=== PATIENT | male | born 1935 | race Two or more races ===

== ENCOUNTER 2021-12-20 18:55 | Observation (INO) | payer BC, MEDICARE ==
[~2021-12-20] VITALS: Ht 177.8 cm; Wt 72.7 kg
[2021-12-20 19:23] LABS: EOSINOPHILS # (AUTO) 0.3 X10'3 (0-0.9); HEMATOCRIT 40.8 % (42.0-52.0); LYMPHOCYTES # (AUTO) 0.8 X10'3 (1.1-4.8); NEUTROPHILS # (AUTO) 7.3 X10'3 (1.8-7.7); WHITE BLOOD COUNT 9.6 X10'3 (4.5-11.0)
[2021-12-20 19:25] LABS: BASOPHILS % (AUTO) 0.4 % (0-1); EOSINOPHILS % (AUTO) 2.9 % (0-6); HEMOGLOBIN 13.7 g/dl (14.0-17.9); LYMPHOCYTES % (AUTO) 8.6 % (21-51); MEAN CORPUSCULAR HEMOGLOBIN 30.4 PG (27.0-31.0); MEAN CORPUSCULAR HGB CONC 33.5 g/dL (33.0-36.5); MEAN CORPUSCULAR VOLUME 90.7 FL (78-98); MEAN PLATELET VOLUME 8.8 FL (7.4-10.4); MONOCYTES # (AUTO) 1.2 X10'3 (0-0.9); MONOCYTES % (AUTO) 12.3 % (2-12); NEUTROPHILS % (AUTO) 75.8 % (42-75); PLATELET COUNT 144 X10'3 (140-440); RED CELL DISTRIBUTION WIDTH 13.8 % (11.5-14.5)
[2021-12-20 19:38] LABS: ALANINE AMINOTRANSFERASE 23 U/L (12-78); ALBUMIN 3.1 G/DL (3.4-5.0); ALBUMIN/GLOBULIN RATIO 0.7 (1.1-1.5); ALKALINE PHOSPHATASE 89 IU/L (46-116); ANION GAP 7 (8-16); ASPARTATE AMINO TRANSFERASE 16 U/L (10-37); BILIRUBIN,TOTAL 0.5 MG/DL (0.1-1.0); BLOOD UREA NITROGEN 20 MG/DL (7-18); BUN/CREATININE RATIO 10.4 (5.4-32.0); CALCIUM 9.6 MG/DL (8.5-10.1); CHLORIDE 104 MMOL/L (99-107); CREATININE 1.93 MG/DL (0.60-1.10); GLUCOSE 132 MG/DL (70-104); SODIUM 140 MMOL/L (135-145); TOTAL CARBON DIOXIDE 29.2 MMOL/L (24-32); TOTAL PROTEIN 7.5 G/DL (6.4-8.2); eGFR 33 ML/MIN
[2021-12-20] MEDS: dextrose 5%-1/2 normal saline 1,000 ML IV SCH (20:41)
--- NOTE | 2021-12-20 21:24 | NUR ---
CALL [facility] AT [phone] {DAUGHTER }FOR ANY QUES OR CONCERN OR IF PT NEEDS TO BE REDIRECTABLE.
[2021-12-20] MEDS ORDERED: acetaminophen 325mg tablet PO PRN (23:00)
[2021-12-20] MEDS ORDERED: magnesium 2GM in 50ml NS 50 ML IV PRN (23:00)
[2021-12-20] MEDS: normal saline 1000ml 1,000 ML IV SCH (23:00)
[2021-12-20] MEDS ORDERED: ondansetron/PF 4mg/2ml inj IV PRN (23:00)
[2021-12-20] MEDS ORDERED: magnesium 4gm in 100ml NS 100 ML IV PRN (23:00)
[2021-12-20] MEDS ORDERED: potassium CL 10mEq/100ml bag 100 ML IV PRN (23:00)
[2021-12-20] MEDS ORDERED: mag hydrox/Alum hydrox/simeth 30ml oral suspension PO PRN (23:00)
[2021-12-20] MEDS ORDERED: POTASSIUM BICARB 20meq eff tab 20 MEQ TABLET.EFF PO PRN ×2 (23:00)
--- NOTE | 2021-12-21 00:05 | NUR ---
Patient placed on hospital bed.
[2021-12-21 00:41] LABS: CLARITY,URINE CLEAR (Clear); COLOR,URINE YELLOW (Yellow); GLUCOSE, URINE NEGATIVE (Neg); KETONES,URINE NEGATIVE (Neg); LEUKOCYTE ESTERASE ,URINE NEGATIVE (Neg); NITRITES, URINE NEGATIVE (Neg); OCCULT BLOOD,URINE NEGATIVE (Neg); PROTEIN,URINE 30 mg/dl (Neg); UROBILINOGEN,URINE 0.2 E.U/dL (0.2-1.0)
[2021-12-21 00:43] LABS: UA COLLECTION TYPE URINAL
[2021-12-21] MEDS: dextrose 5%-1/2 normal saline 1,000 ML IV SCH ×3 (00:50→09:51)
[2021-12-21 00:52] LABS: BACTERIA,URINE FEW /HPF (Neg); SQUAMOUS EPITHELIAL CELL,UR FEW /LPF (FEW)
[2021-12-21 00:53] LABS: TRANSITIONAL EPI CELLS,URINE FEW /HPF
--- NOTE | 2021-12-21 01:07 | NUR ---
> PT REFUSING TYLENOL 650MG FOR HIS LEG PAIN, REQUESTING FOR A STRONGER PAIN MED
--- NOTE | 2021-12-21 02:00 | NUR ---
Patient becoming increasingly confused, unable to redirect, patient not staying in bed, very frustrated with staff. Has gotten out of bed multiple times and refuses to "be told what to do".
[2021-12-21] MEDS ORDERED: ziprasidone IM 20mg inj **IM only IM ONE (02:15)
--- NOTE | 2021-12-21 03:37 | NUR ---
Patient resting comfortably, no signs of distress, no needs at this time.
--- NOTE | 2021-12-21 04:27 | NUR ---
Unable to complete patient med rec d/t patient mentation and increasing confusion. Patient did not come with med list, states his has it. Unable to access ext med because [facility].
[2021-12-21 07:28] LABS: ALANINE AMINOTRANSFERASE 21 U/L (12-78); ALBUMIN 2.7 G/DL (3.4-5.0); ALBUMIN/GLOBULIN RATIO 0.7 (1.1-1.5); ALKALINE PHOSPHATASE 83 IU/L (46-116); ANION GAP 9 (8-16); ASPARTATE AMINO TRANSFERASE 21 U/L (10-37); BILIRUBIN,TOTAL 0.5 MG/DL (0.1-1.0); BLOOD UREA NITROGEN 18 MG/DL (7-18); BUN/CREATININE RATIO 11.8 (5.4-32.0); CALCIUM 9.1 MG/DL (8.5-10.1); CHLORIDE 107 MMOL/L (99-107); CREATININE 1.53 MG/DL (0.60-1.10); GLUCOSE 98 MG/DL (70-104); MAGNESIUM 2.1 MG/DL (1.5-2.4); POTASSIUM 4.3 MMOL/L (3.5-5.1); SODIUM 138 MMOL/L (135-145); TOTAL CARBON DIOXIDE 22.5 MMOL/L (24-32); TOTAL PROTEIN 6.8 G/DL (6.4-8.2); eGFR 44 ML/MIN
[2021-12-21 07:36] LABS: BASOPHILS # (AUTO) 0.1 X10'3 (0-0.2); EOSINOPHILS # (AUTO) 0.4 X10'3 (0-0.9); EOSINOPHILS % (AUTO) 4.8 % (0-6); HEMATOCRIT 40.6 % (42.0-52.0); HEMOGLOBIN 13.4 g/dl (14.0-17.9); LYMPHOCYTES # (AUTO) 1.4 X10'3 (1.1-4.8); LYMPHOCYTES % (AUTO) 18.2 % (21-51); MEAN CORPUSCULAR HEMOGLOBIN 29.8 PG (27.0-31.0); MEAN CORPUSCULAR VOLUME 90.3 FL (78-98); MEAN PLATELET VOLUME 8.6 FL (7.4-10.4); MONOCYTES # (AUTO) 1.1 X10'3 (0-0.9); MONOCYTES % (AUTO) 14.1 % (2-12); NEUTROPHILS # (AUTO) 4.6 X10'3 (1.8-7.7); NEUTROPHILS % (AUTO) 61.9 % (42-75); PLATELET COUNT 146 X10'3 (140-440); RED CELL DISTRIBUTION WIDTH 13.8 % (11.5-14.5); WHITE BLOOD COUNT 7.5 X10'3 (4.5-11.0)
[2021-12-21] MEDS ORDERED: docusate sod 100mg capsule PO SCH (08:00)
[2021-12-21] MEDS ORDERED: K and/or MAG REPLACEMENT MC SCH (08:00)
[2021-12-21] MEDS: normal saline 1000ml 1,000 ML IV SCH (09:03)
[2021-12-21 11:41] VITALS: BP 147/92
[2021-12-21] MEDS ORDERED: enoxaparin 30mg/0.3ml syringe SQ SCH (20:00)
== END 2021-12-21 13:23 | disposition home or self-care (01) ==
LOC: ER 18:55 → ED HOLD 23:07
PROVIDERS: ADMIT Family Medicine; ATTEND Family Medicine
DX: N17.9 Acute kidney failure, unspecified (principal); N18.9 Chronic kidney disease, unspecified; R53.1 Weakness; E86.0 Dehydration; R41.0 Disorientation, unspecified; H53.47 Heteronymous bilateral field defects; I51.7 Cardiomegaly; Z86.73 Personal history of transient ischemic attack (TIA), and cerebral infarction without residual deficits; Z79.899 Other long term (current) drug therapy; Z85.54 Personal history of malignant neoplasm of ureter
CPT/HCPCS: 36415; 70450; 71045; 80053; 81001; 83735; 83880; 84443; 84484; 85025; 87088; 93005; 96360; 96361; 96372; 97161; 97530; 99285; G0378; J3486; J7030; J7042